=== PATIENT | male | born 1990 | race Caucasian/White ===

== ENCOUNTER 2025-08-26 19:15 | Emergency (ER) | payer OTHER, SELFPAY ==
--- NOTE | ~2025-08-26 | XR_ITS ---
CLINICAL HISTORY: RT knee pain 2 view right knee Comparison: None provided Findings: No fractures or dislocations. No significant arthritic change or erosions. No joint effusion of the knee. No radiopaque foreign body. There is prepatellar soft tissue swelling. IMPRESSION: Prepatellar soft tissue thickening which may be due to prepatellar bursitis or contusion. This document has been electronically signed by: Eitan Reyes MD on 08/26/2025 20:21:51
[2025-08-26 19:23] VITALS: BP 120/82; PULSE 82; RESP 20; TEMP 36.6; O2SAT 99; BMI 27.4
--- OUTSIDE RECORDS SUMMARY | 2025-08-26 20:20 | XMS_ITS | Clinical Summary ---
Author Organization [facility] Address [address] [place] [id number] Phone Care Team Providers Care Narcotics Agent Name Role Phone Johnnie Gill MD Primary Care Provider Allergies No known active allergies Medications No known medications Active Problems No known active problems Social History Tobacco Use Types Packs/Day Years Used Date Smoking Tobacco: Never Assessed Education Answer Date Recorded Are you interested in more education? Not on raffaele e 03/07/2023 Are you concerned about learning? Not on file 03/07/2023 No 03/07/2023 No 03/07/2023 Digital Access Answer Date Recorded No 04/07/2023 No 04/07/2023 Reliable internet access at home? Not on file 04/07/2023 Device with a working camera? Not on file Sex and Gender Information Value Date Recorded Sex Assigned at Not on file Legal Sex Male 1:16 PM EDT Gender Identity Not on file Sexual Orientation Not on file Last Filed Vital Signs Vital Sign Reading Time Taken Comments Blood Pressure 128/70 02/09/2017 2:49 PM EDT Pulse 91 02/09/2017 2:49 PM EDT Temperature 36.9 C (98.5 F) 02/09/2017 2:49 PM EDT Respiratory Rate 18 02/09/2017 2:49 PM EDT Oxygen Saturation 100% 02/09/2017 2:49 PM EDT Inhaled Oxygen Concentration - - Weight 81.6 kg (180 lb) 04/05/2022 2:31 PM EDT Height 170.2 cm (5' 7 ) 04/05/2022 2:31 PM EDT Body Mass Index 28.19 04/05/2022 2:31 PM EDT Plan of Treatment Health Maintenance Due Date Last Done Comments Adult Td,Tdap Booster 1992 DEPRESSION SCREENING 2004 SMOKING Hx and SMOKELESS TOB ACCO SCREENING 2005 HEPATITIS C SCREENING 2010 HIV ONE-TIME SCREENING (18-6 5 YEARS) 2010 INFLUENZA VACCINE (#1) 2025 11/23/2012 COVID-19 VACCINE (2 2024-2 6 season) 2025 02/19/2021 HEPATITIS A VACCINES Aged Out No long er eligible based on patient's age to complete this topic HIB VACCINES Aged Out No longer eligi ble based on patient's age to complete this topic MENINGOCOCCAL VACCINES (ACWY) Aged Out No longer eligible based on patient's age to complete this topic MENINGOCOCCAL VACCINES (B) Aged Out N o longer eligible based on patient's age to complete this topic PNEUMOCOCCAL VACCINES (0-49 years) Aged Out No longer eligible based on patient's age to complete this topic Medical Devices Not on file Insurance [facility] [employer] Care Teams Narcotics Agent Relationship Specialty Start Date End Date Johnnie Gill MD [address] [place] [phone] PCP - General Internal Medicine 02/09/17 Additional Source Comments The information contained in this document represents components of the legal health record. It is not the complete legal health record.[facility]
--- NOTE | 2025-08-26 21:22 | ED.GENADULT ---
HPI - General Adult General Chief complaint: Extremity Problem Stated complaint: R knee pain Time Seen by Provider: 08/26/25 20:26 Source: patient, RN notes reviewed and old records reviewed Mode of arrival: ambulatory Limitations: no limitations History of Present Illness ED Provider: SHARAN Hancock HPI narrative: 35-year-old male without significant medical history presents to the ED due to right knee pain. Patient states a month ago he was in a skateboarding accident where he slammed the right knee into a concrete wall sustaining a laceration and pain however did not seek medical attention at this time. Patient states that he has been healing, and feeling better however he woke up this morning with increased pain and swelling to the right knee. Related Data Previous Rx's ?Medication ?Instructions ?Recorded cephalexin 500 mg capsule 500 mg PO BID 7 days #14 caps 08/26/25 prednisone 20 mg tablet 20 mg PO BID 5 days #10 tabs 08/26/25 Allergies Allergy/AdvReac Type Severity Reaction Status Date / Time No Known Allergies Allergy Verified 08/26/25 19:25 Review of Systems Review of Systems: CONST: Negative for fever, body aches and chills. HENT: Negative for neck pain/stiffness, headache, congestion, sore throat, swelling. EYES: Negative for discharge/pain or vision changes. RESP: Negative for cough/hemoptysis and shortness of breath. CV: Negative chest pain, difficulty breathing, palpitations. ABD: Negative pain, nausea, vomiting. : Negative increase frequency, dysuria, blood in urine or stool. MUSC: Negative for muscle aches, edema. POS R knee swelling and pain SKIN: Negative rash, lesions/sores. NEURO: Negative headache, dizziness, weakness. Yes all other systems are reviewed and are negative [facility] Past Medical History Attestation statement: The following information was validated with the patient. Source: old records reviewed and nursing notes reviewed Social History Social History Advance Directives: No Advance Directives Information Provided: Yes Physical Exam ED Vital Signs: Vital Signs - 24 hr 08/26/25 19:23 Temperature 97.8 F Pulse Rate 82 Respiratory Rate 20 Blood Pressure 120/82 Pulse Oximetry 99 Oxygen Delivery Method Room Air BMI result Body Mass Index 27.4 GENERAL APPEARANCE: ?AxOx4, generally well-appearing, no acute distress. HEENT: ?NC, AT. MMM. EOMI, clear conjunctiva, oropharynx clear. NECK: ?Supple without lymphadenopathy.? No stiffness or restricted ROM. HEART:? Normal rate and regular rhythm, normal S1/S2, no m/r/g LUNGS:? CTAB, moving air well. No crackles or wheezes are heard. EXTREMITIES: ?Without cyanosis, clubbing or edema. R knee with mild warmth and erythema over the patella, with mild TTP over anterior and lateral patella, full ROM popliteal pulse 2+, SILT NEUROLOGICAL: ?Grossly nonfocal. Alert and oriented, moving all 4 extremities. Observed to ambulate with normal gait. Skin: ?Warm and dry without any rash. Medical Decision Making Medical Decision Making MDM Narrative: 35-year-old male without significant medical history presents to the ED due to right knee pain. Patient states a month ago he was in a skateboarding accident where he slammed the right knee into a concrete wall sustaining a laceration and pain however did not seek medical attention at this time. Patient states that he has been healing, and feeling better however he woke up this morning with increased pain and swelling to the right knee. Denies fevers, chills, no history of IVDU VS on initial observation-normotensive BP 120/82, pulse rate of 82, respiratory rate of 20, afebrile with oral temp of 97.8?, O2 saturation 99% on room air. Physical exam the right knee with mild warmth and erythema over the patella, with mild TTP over anterior and lateral patella, full ROM popliteal pulse 2+, SILT XR R knee negative for fracture or dislocation, however does reveal prepatellar soft tissue thickening due to bursitis or contusion. Patient received 30 mg IM Toradol, 975 p.o. Tylenol while in the department for pain control. Patient with right knee pain after slamming right knee into concrete wall after skateboarding accident 1 month ago. Knee has been improving however woke up this morning with increased right knee pain, questions if this is due to him sleeping awkwardly on the knee last night as he states he was sleeping on his stomach and believes his dog was lying on top of the leg. Patient is afebrile, without history of IVDU, full ROM intact, able to weight bear without significant pain, SILT- less likely septic joint. XR negative for fracture but does show soft tissue swelling. Patient sustained laceration to the R knee when he had the skateboarding accident but did not receive medical care. R knee with mild warmth and edema over the patella. Will discharge with 7 day course of keflex for cellulitis with 5 day course of 40mg prednisone for swelling. Patient has PCP and I counseled him to follow up in office to ensure resolution of symptoms. Patient well enough to go home for self care and follow [facility] for management. I counseled patient on strict return precautions. Patient is in agreement with the plan. Differential Diagnosis Differential Diagnoses: The differential diagnosis associated with the presentation includes Septic joint Knee fracture Knee dislocation Cellulitis Knee contusion Admission/Observation Consideration of admission/observation: Escalation of care including admission/observation considered Independent Interpretation I performed an independent interpretation of an: Plain X-Ray Interpretation: I personally interpreted the x-ray of the right knee which was negative for fracture, dislocation however did show some soft tissue swelling over the patella, I agree with the radiologist's interpretation Radiology Impression Discussion of test interpretation with radiology: I have reviewed the radiologist's reading. Radiologist Impression: XR R knee Findings: No fractures or dislocations. No significant arthritic change or erosions. No joint effusion of the knee. No radiopaque foreign body. There is prepatellar soft tissue swelling. IMPRESSION: Prepatellar soft tissue thickening which may be due to prepatellar bursitis or contusion. This document has been electronically signed by: Eitan Reyes MD on 08/26/2025 20:21:51 Dictated By: Eitan Reyes MD Signed By: <Electronically signed by Eitan Reyes MD in OV> 08/26/252021 External Record Review External record reviewed: Inpatient record, Office record and Outpatient record Chronic Conditions Patient?s care impacted by: Other (No known medical history) Discharge Plan Discharge Clinical Impression: Contusion of knee, right, Cellulitis Patient Disposition: Home, Self-Care Instructions: Cellulitis (ED) Additional Instructions: You were evaluated in the emergency department for right knee pain. The x-ray of your right knee was negative for fracture dislocation however did show some soft tissue swelling over the right knee cap. Your physical exam was reassuring as your posterior knee pulses are intact, you have full range of motion, sensation is intact, and you were able to bear weight on the right knee. Your right knee does have some redness and warmth in the area due to this you will be prescribed antibiotics for treatment. You are being prescribed a 7 day course of Keflex to cover for bacterial infection, and 5 days of 40 mg of prednisone for soft tissue swelling. Please complete the entire course of medication even if your symptoms began to improve. Additionally, you can take 500 mg of Tylenol and 400 mg of ibuprofen every 6 hours to manage pain at home. Over the next 48 hours you should apply ice to the affected area, elevate above heart level, and use Shashi bandage for compression. Please follow up with your primary care doctor to ensure resolution of your symptoms. Please return to the emergency department if you begin to experience fevers over 100.4?, worsening right knee pain, worsening redness or warmth to the right knee, pus-like drainage from the right knee, inability to bear weight on the right knee, inability to move the right knee, or any new/worsening/concerning symptoms. Prescriptions: New cephalexin 500 mg capsule 500 mg PO BID 7 Days Qty: 14 0RF prednisone 20 mg tablet 20 mg PO BID 5 Days Qty: 10 0RF Print Language: Kazakh
[2025-08-26 22:01] VITALS: BP 120/82; PULSE 82; RESP 20; TEMP 36.6; O2SAT 99
== END 2025-08-26 22:02 | disposition home or self-care (01) ==
PROVIDERS: Emergency Provider Emergency Medicine
DX: S80.01XA Contusion of right knee, initial encounter (principal); M25.561 Pain in right knee; L03.115 Cellulitis of right lower limb; X58.XXXA Exposure to other specified factors, initial encounter; Y93.9 Activity, unspecified; Y92.9 Unspecified place or not applicable; Y99.8 Other external cause status
CPT/HCPCS: 73560; 96372; 99283; 99284; J1885

== ENCOUNTER → 2025-08-26 19:33 | Outpatient (BNV) | payer OTHER, SELFPAY | PROVIDERS: Emergency Provider Emergency Medicine; Visit Provider Radiology Diagnostic Radiology | DX: M25.561 Pain in right knee (principal) | CPT/HCPCS: 73560 ==